=== PATIENT | male | born 1985 | race African-American/Black ===

== ENCOUNTER → 2020-07-17 | Outpatient (CLI) | payer SELFPAY | LOC: M OUTALCOH 10:30 | PROVIDERS: ATTEND Psychiatry & Neurology Addiction Medicine | DX: Z03.89 Encounter for observation for other suspected diseases and conditions ruled out (principal) ==

== ENCOUNTER 2020-07-24 16:00 | Outpatient (RCR) | payer SELFPAY | END 2020-08-12 | LOC: M OUTALCOH 16:00 | PROVIDERS: ATTEND Psychiatry & Neurology Addiction Medicine | DX: Z03.89 Encounter for observation for other suspected diseases and conditions ruled out (principal) ==